=== PATIENT | male | born 1980 | race African-American/Black ===

== ENCOUNTER 2024-08-11 20:52 | Inpatient (IN) | payer OTHER ==
[2024-08-11 21:26] VITALS: BMI 36.8
[2024-08-11] MEDS ORDERED: DICYCLOMINE HCL 10 MG CAPSULE PO PRN (23:49)
[2024-08-11] MEDS ORDERED: MAGNESIUM HYDROX 2400MG/30ML ORAL SUSPENSION 30 ML CUP PO PRN (23:49)
[2024-08-11] MEDS ORDERED: POLYETHYLENE GLYCOL (HEALTHYLAX) 3350 17 GM PACKET PO PRN (23:49)
[2024-08-11] MEDS ORDERED: ACETAMINOPHEN 325 MG TABLET (FP) PO PRN (23:49)
[2024-08-11] MEDS ORDERED: BENZONATATE 200 MG CAPSULE PO PRN (23:49)
[2024-08-11] MEDS ORDERED: NALOXONE (NARCAN) HCL 4 MG/0.1 ML SPRAY NS PRN (23:49)
[2024-08-11] MEDS ORDERED: LOPERAMIDE HCL 2 MG CAPSULE PO PRN (23:49)
[2024-08-11] MEDS ORDERED: IBUPROFEN 400 MG TABLET (FP) PO PRN (23:49)
[2024-08-11] MEDS ORDERED: guaiFENesin 600 MG TABLET.ER (FP) PO PRN (23:49)
[2024-08-11] MEDS ORDERED: BENZOCAINE/MENTHOL (CHLORASEPTIC ) LOZENGE MM PRN (23:49)
[2024-08-11] MEDS ORDERED: NALOXONE (NYS OPIOID OVERDOSE PROGRAM) 4 MG/0.1 ML SPRAY NS PRN (23:49)
[2024-08-11] MEDS ORDERED: IBUPROFEN 600 MG TABLET (FP) PO PRN (23:49)
[2024-08-11] MEDS ORDERED: MAG HYDROX/AL HYDROX/SIMETH 30 ML UNIT-DOSE CUP PO PRN (23:49)
[2024-08-11] MEDS ORDERED: BISMUTH SUBSALICYLATE 524 MG/30 ML PO PRN (23:49)
[2024-08-11] MEDS: methaDONE HCL 10 MG TABLET (FOR DETOX USE ONLY) PO ONE (23:56)
[2024-08-11] MEDS: ONDANSETRON *ODT* 4 MG TABLET SL PRN (23:59)
[2024-08-12] MEDS ORDERED: ONDANSETRON *ODT* 4 MG TABLET ONE (00:07)
[2024-08-12] MEDS ORDERED: methaDONE HCL 10 MG TABLET (FOR DETOX USE ONLY) ONE (00:07)
[2024-08-12] MEDS: PRENATAL VITAMINS W/ FOLIC ACID TABLET (FP) PO SCH (10:17)
[2024-08-12] MEDS: cloNIDine HCL 0.1 MG TABLET PO PRN (22:14)
[2024-08-12] MEDS: THIAMINE 100 MG TABLET PO SCH (22:15)
[2024-08-12] MEDS: MELATONIN 5 MG TABLETS PO SCH (22:15)
[2024-08-12] MEDS: METHOCARBAMOL 500 MG TABLET PO PRN (22:15)
[2024-08-13] MEDS: methaDONE HCL 10 MG TABLET (FOR DETOX USE ONLY) PO ONE (09:50)
[2024-08-13] MEDS: LISINOPRIL 5 MG TABLET PO SCH (13:45)
[2024-08-13 15:16] LABS: HIV INTERPRETATION NEGATIVE (NEGATIVE)
[2024-08-13] MEDS: SUVOREXANT 10 MG TABLET PO PRN (21:56)
[2024-08-14] MEDS: hydrOXYzine PAMOATE 25 MG CAPSULE (FP) PO PRN (22:13)
[2024-08-15 10:02] VITALS: BP 129/91; PULSE 54; RESP 16; TEMP 96.6
[2024-08-15] MEDS: methaDONE HCL 10 MG TABLET (FOR DETOX USE ONLY) PO ONE (10:26)
[2024-08-15] MEDS ORDERED: SUVOREXANT 15 MG TABLET PO PRN (22:00)
== END 2024-08-15 13:34 | disposition home or self-care (01) | DRG 773 ==
LOC: YASAS 20:52 → Y6N 23:37
PROVIDERS: ADMIT Allergy & Immunology; ATTEND Surgery
PROC: HZ2ZZZZ Detoxification Services for Substance Abuse Treatment (ICD-10-PCS; principal; 2024-08-11)
DX: F11.23 Opioid dependence with withdrawal (principal); F12.20 Cannabis dependence, uncomplicated; F19.282 Other psychoactive substance dependence with psychoactive substance-induced sleep disorder; F19.280 Other psychoactive substance dependence with psychoactive substance-induced anxiety disorder; F19.24 Other psychoactive substance dependence with psychoactive substance-induced mood disorder; F32.9 Major depressive disorder, single episode, unspecified; F43.10 Post-traumatic stress disorder, unspecified; I10 Essential (primary) hypertension; Z87.891 Personal history of nicotine dependence
CPT/HCPCS: 36415; 80305; 80307; 87389; 93005; 93010; Q0162